=== PATIENT | female | born 1965 | race Caucasian/White ===

== ENCOUNTER 2017-02-02 23:12 | Emergency (ER) | payer BC ==
--- NOTE | ~2017-02-02 | CR72 ---
[facility] A Service of [facility] & [facility] RADIOLOGY TEXT RESULTS PATIENT: JAMES RIBERA LOCATION: [place] : [birth year] UNIT #: [id number] AGE: [address]: Sacha Gonsalez MD SEX: F ORDER DR: [id number] [facility] [address] [place], [place] [address] [id number] E MR#: [id number] Acc #: [id number] NAME: JAMES RIBERA : 1965 SEX: F STUDY DATE/TIME: 02/02/2017 22:42 UNIT: [place] ROOM: STUDY DESCRIPTION: CR Chest Single View Portable Attending Physician: Sacha Gonsalez M.D. Ordering Physician: Sacha Gonsalez M.D. Primary Care Physician: Melany Palumbo M.D. MEDICAL IMAGING REPORT This report is preliminary unless electronic signature is present EXAM Portable chest, 02/02/2017 INDICATION Chest pain for the past 3 days. PROCEDURE Frontal view chest. COMPARISON 10/29/2016 FINDINGS Stable mild cardiomegaly. Pulmonary vessels are unchanged. No dense consolidation, effusion or pneumothorax. IMPRESSION No change from 10/29/2016. Stable mild cardiomegaly. Dictated by... Robbin Hopkins M.D. THIS IS AN ELECTRONICALLY VERIFIED REPORT Robbin Hopkins M.D. at 02/03/2017 10:24 PM DALED/parveen TD: 02/03/2017 02:14 JOB #: [id number] MEDICAL IMAGING REPORT Page 1 of 1 COPY
--- NOTE | ~2017-02-02 | CT16 ---
[facility] A Service of [facility] RADIOLOGY TEXT RESULTS PATIENT: JAMES RIBERA LOCATION: [facility] : [birth year] UNIT #: [id number] AGE: [address]: Sacha Gonsalez MD SEX: F ORDER DR: [id number] [facility] [address] [place], [place] [address] [id number] E MR#: [id number] Acc #: [id number] NAME: JAMES RIBERA : 1965 SEX: F STUDY DATE/TIME: 02/03/2017 0:16 UNIT: [place] ROOM: STUDY DESCRIPTION: CT Angio Chest for PE Attending Physician: Sacha Gonsalez M.D. Ordering Physician: Sacha Gonsalez M.D. Primary Care Physician: Melany Palumbo M.D. MEDICAL IMAGING REPORT This report is preliminary unless electronic signature is present EXAM CTA chest, PE protocol INDICATIONS Elevated D-dimer level, off-and-on chest pain for the past 3 days. PROCEDURE Contrast-enhanced CTA chest, attention on opacification of pulmonary arteries. Coronal and 3-D MIP sagittal reformatted images were reconstructed and submitted. 80 mL of Isovue-370. This CT exam was performed with one or more of the following radiation dose reduction techniques: Automatic exposure control, adjustment of mA and/or kV according to patient size, and iterative reconstruction. COMPARISON 05/12/2016 FINDINGS No evidence for pulmonary embolus. No adenopathy. Cardiomegaly. No acute findings in the included upper abdomen. Lungs are clear. No aggressive appearing bone lesion. IMPRESSION 1. No acute findings. No evidence for pulmonary embolus. 2. Cardiomegaly. Dictated by... Robbin Hopkins M.D. THIS IS AN ELECTRONICALLY VERIFIED REPORT Robbin Hopkins M.D. at 02/03/2017 10:24 PM EED/psc [facility] A Service [facility] & [facility] RADIOLOGY TEXT RESULTS PATIENT: JAMES RIBERA LOCATION: [facility] : [birth year] UNIT #: [id number] AGE: [address]: Sacha Gonsalez MD SEX: F ORDER DR: TD: 02/03/2017 03:26 JOB #: [id number] MEDICAL IMAGING REPORT Page 1 of 1 COPY
--- NOTE | ~2017-02-02 | EKG ---
PATIENT: JAMES RIBERA UNIT #: [id number] Ventricular Rate: 71 BPM Atrial Rate: 71 BPM P-R Interval: 116 ms QRS Duration: 78 ms Q-T Interval: 382 ms QTC Calculation(Bezet): 415 ms P Adel: 37 degrees Calculated R Adel: 25 degrees Calculated T Adel: 29 degrees Diagnosis Line: Normal sinus rhythm Diagnosis Line: Normal ECG Diagnosis Line: When compared with ECG of 29-OCT-2016 21:31, Diagnosis Line: Premature ventricular complexes are no longer Diagnosis Line: Present Diagnosis Line: Confirmed by TANIYA CALLEJAS MD ([id number]) on 02/03/2017 Diagnosis Line: 10:29:28 PM INTERPRETING MD: JÚNIOR VAIL
[2017-02-02 22:49] LABS: BASOPHIL# 0.1 X10e3 (0-0.3); BASOPHIL% 0.9 % (0-2.5); DIFF IND NO; EOSINOPHIL# 0.1 X10e3 (0-0.7); EOSINOPHIL% 0.6 % (0.0-7.0); HEMATOCRIT 36.7 % (35.0-45.0); LYMPHOCYTE# 1.9 X10e3 (1.0-3.5); LYMPHOCYTE% 18.7 % (17.0-45.0); MEAN CELL VOLUME 83.3 FL (83-96); MEAN CORPUSCULAR HEMOGLOBIN 27.2 PG (28-34); MEAN CORPUSCULAR HGB CONC 32.7 g/dL (30-36); MEAN PLATELET VOLUME 7.7 FL (6.5-11.5); MONOCYTE# 0.7 X10e3 (0-1.0); MONOCYTE% 6.5 % (3.0-12.0); NEUTROPHIL# 7.6 X10e3 (1.5-7.1); NEUTROPHIL% 73.3 % (40-75); PLATELET COUNT 287 X10e3 (140-420); RED CELL DISTRIBUTION WIDTH 14.6 % (11.0-15.5); WHITE BLOOD COUNT 10.4 X10e3 (4.0-10.5)
[2017-02-02 22:52] LABS: POC - CKMB <1.0 ng/mL (0.0-7.9); POC - TROPONIN <0.05 ng/mL (<=0.05)
[2017-02-02 23:02] LABS: ALBUMIN SERUM 3.8 g/dL (3.5-5.0); ALKALINE PHOSPHATASE 93 U/L (32-92); ALT (SGPT) 16 U/L (10-40); AST (SGOT) 16 U/L (10-42); BILIRUBIN,TOTAL 0.3 mg/dL (0.2-2.0); BLOOD UREA NITROGEN 8 mg/dL (9-23); CALCIUM SERUM 8.5 mg/dL (8.4-10.2); CARBON DIOXIDE 21 mmol/L (22-31); CHLORIDE 108 mmol/L (100-111); CREATININE SERUM 0.5 mg/dL (0.6-1.4); GLOM FILT RATE Estimated 113.7 mL/min (>60); GLUCOSE FASTING 109 mg/dL (70-110); POTASSIUM 3.3 mmol/L (3.5-5.1); PROTEIN TOTAL SERUM 7.1 g/dL (6.0-8.3); SODIUM 137 mmol/L (135-145)
[2017-02-02 23:06] LABS: BILIRUBIN, DIRECT <0.1 mg/dL (0.0-0.2); BILIRUBIN,INDIRECT 0.2 mg/dL (0.0-0.9)
[2017-02-02 23:07] LABS: PARTIAL THROMBOPLASTIN TIME 21.2 SECONDS (23.5-31.3)
[~2017-02-02 23:12] MED LIST: ASPIRIN81 MG PO; BENTYL10 M1 PO; BIRTH CONTROL PILL PO; BRILINTA90 MG PO; CLARITIN10 M2 PO; CLARITIN10 MG PO; LEVAQUIN PO; LIPITOR PO; LIPITOR80 MG PO; LISINOPRIL10 MG PO; METOPROLOL TART25 MG PO; NITROGLYGERIN0.4 MG PO; PREVACID PO; PRILOSEC PO; ZOFRAN PO
[2017-02-03 01:06] LABS: POC - CKMB 1.5 ng/mL (0.0-7.9); POC - TROPONIN <0.05 ng/mL (<=0.05)
== END 2017-02-03 01:45 | disposition home or self-care (01) ==
LOC: CED 23:12
PROVIDERS: Emergency Medicine
DX: R07.89 Other chest pain (principal); I25.2 Old myocardial infarction; M79.7 Fibromyalgia; K21.9 Gastro-esophageal reflux disease without esophagitis; E78.5 Hyperlipidemia, unspecified; Z88.2 Allergy status to sulfonamides; Z88.1 Allergy status to other antibiotic agents; Z95.1 Presence of aortocoronary bypass graft
CPT/HCPCS: 36415; 71010; 71275; 80048; 80076; 82553; 84484; 85025; 85379; 85610; 85730; 93005; 99284; Q9967

== ENCOUNTER 2017-02-07 22:35 | Observation (INO) | payer BC ==
--- NOTE | ~2017-02-07 | ST ---
Unit #: [id number] #: [id number] Patient: JAMES RIBERA [id number] [address] [address] [id number] I MR#: [id number] NAME: JAMES RIBERA : 1965 SEX: F STUDY DATE/TIME: 02/08/2017 UNIT: [facility] ROOM: 578 STUDY DESCRIPTION: Stress Test Attending Physician: Rafael Tan M.D. Primary Care Physician: Melany Palumbo M.D. CARDIOLOGY REPORT REASON FOR TEST Chest pain, known coronary artery disease with stents. DESCRIPTION Baseline EKG - normal sinus rhythm, rate of 76 beats per minute. The patient exercised on the treadmill according to Abebe protocol for a total of 7 minutes 30 seconds achieving 9.30 METs with a resting heart rate of 76 beats per minute and a peak heart rate of 166 beats per minute representing 97% of the maximum predicted heart rate. During the testing, the patient did experience some mild chest discomfort at peak exertion under the left breast which she rated as approximately 3 to 4. The patient states it was fleeting and gone. No intervention was needed. She also had some shortness of breath. There were some mild ST segment changes noted in the inferior lateral leads of approximately 0.[address] segment depression in the inferior lateral leads. The patient did experience an occasional PVC during exercise as well as occasional PVCs in the recovery period. The test was stopped secondary to protocol completion achieving target heart rate. IMPRESSION 1. There were some EKG changes suggestive of ischemia, approximately 0.5 to 1 mm in the inferior lateral leads. The patient also did experience some mild chest pain during the testing. This was fleeting and resolved immediately. 2. During the infusion, the patient did experience some left sided chest pain, which was fleeting in nature and resolved immediately as well as shortness of breath and fatigue. 3. She did experience occasional PVCs during exercise as well as PVCs in the recovery period. 4. The patient did have a normal blood pressure response to exercise. 5. Please correlate with nuclear imaging. Dictated by... Michael Benítez M.D. Unit #: [id number] #: [id number] Patient: JAMES RIBERA KATHERIN/fanny TD: 02/08/2017 13:08 JOB #: [id number] CARDIOLOGY REPORT Page 1 of 1 X Jen Troncoso APRN CARDIOLOGY REPORT
--- NOTE | ~2017-02-07 | EKG ---
PATIENT: JAMES RIBERA UNIT #: [id number] Ventricular Rate: 86 BPM Atrial Rate: 86 BPM P-R Interval: 106 ms QRS Duration: 76 ms Q-T Interval: 366 ms QTC Calculation(Bezet): 437 ms P Salem: 57 degrees Calculated R Salem: 55 degrees Calculated T Salem: 50 degrees Diagnosis Line: Sinus rhythm with marked sinus arrhythmia with Diagnosis Line: short CA Diagnosis Line: Otherwise normal ECG Diagnosis Line: No previous ECGs available Diagnosis Line: Confirmed by TANIYA CALLEJAS MD ([id number]) on 02/08/2017 Diagnosis Line: 10:45:33 PM INTERPRETING MD: JÚNIOR VAIL
--- NOTE | ~2017-02-07 | DS ---
Unit #: [id number] #: [id number] Patient: JAMES RIBERA Jen Troncoso APRN X DISCHARGE SUMMARY
--- NOTE | ~2017-02-07 | HP ---
Unit #: [id number] #: [id number] Patient: JAMES RIBERA [id number] [address] [place], [place] [address] [id number] I MR#: [id number] NAME: JAMES RIBERA ROOM: 46452 Age: 51 Sex: F Admission Date: 02/08/2017 : 1965 Attending Physician: Rafael Tan M.D. Primary Care Physician: Melany Palumbo M.D. HISTORY AND PHYSICAL HISTORY OF PRESENT ILLNESS This is a 51-year-old white female with known history of hypertension, hyperlipidemia, had non-ST elevation DE last May, status post PCI and stents to the mid and proximal LAD, who just seen Dr. Tan in the office last week and he adjusted her medication because she had some lower extremity edema. She was added on hydrochlorothiazide. According to the patient, she had a couple episodes of midsternal chest pain that radiated under the left breast. She did have some slight shortness of breath but denies any diaphoresis. [place] some palpitation and she says her blood pressure is up. The patient checked her blood pressure and it was over 150 systolically. Today, she was at work and she had another episode of the midsternal chest discomfort. This time, it went into the upper chest wall. She sat down for a few minutes. She took a sublingual nitroglycerin. She said it resolved. She was on her job as a welcome wagon hostess at a restaurant and she said the chest pain reoccurred. This time it radiated up to the left arm besides the left upper chest wall. She describes it as an aching pressure. She rates it on a pain skill of 1 to 10 to be about a 7. She says the sublingual nitroglycerin did help some but she is concerned it could be her heart so she came in for further evaluation. She has had no recent cough, fever or chills. Denies any dizziness, presyncope or syncope. No paroxysmal nocturnal dyspnea or orthopnea. PAST MEDICAL HISTORY 1. Hypertension. 2. Hyperlipidemia. 3. Gastroesophageal reflux disease. 4. Fibromyalgia. 5. History of thoracic outlet syndrome. 6. Coronary artery disease 05/20/16. Acute non-ST elevated DE. Status post PCI and stents to the mid and the proximal LAD. The coronaries were normal. 7. 05/20/16 2D echo. LVEF of 60% with mild mitral regurgitation and trivial tricuspid regurgitation. 8. Smoker. PAST SURGICAL HISTORY 1. Status post PCI and two drug-eluting stents to the mid and proximal LAD. 2. [place] teeth extraction. HOME MEDICATIONS 1. Lisinopril 10 mg p.o. daily. 2. Prilosec 20 mg p.o. daily. Unit #: [id number] #: [id number] Patient: JAMES RIBERA 3. Bentyl 10 mg p.o. daily. 4. Claritin 10 mg p.o. daily. 5. Lipitor 80 mg p.o. at bedtime. 6. Aspirin 81 mg p.o. daily. 7. Brilinta 90 mg p.o. twice daily. 8. Nitrostat 0.4 mg sublingual every five minutes x3 p.r.n. 9. ProAir two puffs inhalation twice daily p.r.n. 10. Metoprolol 50 mg p.o. twice daily. 11. Hydrochlorothiazide 25 mg p.o. daily. 12. Montelukast 10 mg p.o. daily. 13. Blisovi-FE 11/20 tab, one tablet p.o. daily. ALLERGIES Sulfonamides, doxycycline. SOCIAL HISTORY The patient lives with her . 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 She doesn't do any exertional exercise except she says she walks frequently at work. She has been a lifelong nonsmoker. No alcohol or illicit drug abuse. FAMILY HISTORY Her father had coronary artery bypass graft at the age of 58. REVIEW OF SYSTEMS CONSTITUTIONAL: Denies fever or chills. No recent weight gain or weight loss. HEENT: Denies headache or dizziness. No visual or hearing changes. No lymphadenopathy or thyromegaly. No difficulty swallowing. CARDIOVASCULAR: Chest pain present. Palpitations present. Denies increased lower extremity edema. PULMONARY: Slightly increased shortness of breath with the chest pain. Denies paroxysmal nocturnal dyspnea or orthopnea. GI: Denies nausea, vomiting, diarrhea, abdominal pain. NEUROLOGICAL: No focal weakness. PHYSICAL EXAMINATION GENERAL: On exam, the patient is a 51-year-old white female in no acute respiratory distress. She is awake, alert and oriented. VITAL SIGNS: Blood pressure currently is 111/73, blood pressure was as high as 154/91 after admission. Heart rate 92, respirations 20, temperature is 99.1. NECK: Trachea midline. No thyromegaly or lymphadenopathy. Normal carotid upstrokes. No jugular venous distention. HEART: S1, S2. Regular rate and rhythm. No clicks, murmurs or rubs. LUNGS: Bilaterally clear throughout. No wheezes, rales or rhonchi. ABDOMEN: Soft and nontender. Positive bowel sounds present. No hepatosplenomegaly. EXTREMITIES: Pedal pulses are palpable. No pedal edema. DIAGNOSTIC STUDIES LABORATORY: Glucose is 110, BUN 13, creatinine 0.9, eGFR 75.1, sodium 138, potassium 3.4, chloride 104, CO2 24, calcium 9.1, total protein 7.5, albumin is 4.1, AST 17, ALT 17, alkaline phos. is 99. WBC 15.0, hemoglobin 13.2, hematocrit 41.5 and platelets 341. Initial cardiac enzymes - CK MB less than 1.0, troponin is less than 0.05. Unit #: [id number] #: [id number] Patient: JAMES RIBERA CK MB is less than 1.0, troponin less than 0.05. IMAGING: Chest x-ray shows mild cardiomegaly, otherwise no active disease. CARDIOVASCULAR: EKG shows normal sinus rhythm with ventricular rate of 86 beats per minute, nonspecific ST-T wave abnormalities in the lateral leads. Poor R wave progression. Mild left atrial abnormality. IMPRESSION 1. Chest pain. 2. History of coronary artery disease, previous percutaneous coronary intervention and stent x2 to the mid and proximal left anterior descending in 05/2016. 3. Left ventricular ejection fraction of 60%. Mild mitral regurgitation. 4. Hypertension. 5. Hyperlipidemia. 6. Gastroesophageal reflux disease. 7. Fibromyalgia. 8. History of thoracic outlet syndrome. PLAN 1. Will repeat cardiac enzymes this morning. Her EKG looks unremarkable. If her cardiac enzymes remain negative, Dr. Tan recommends proceeding with an exercise Cardiolite stress test to further evaluate for ischemia heart disease. 2. The patient's potassium is 3.4. Will supplement her potassium this morning before the stress test. 3. Continue patient on her dual antiplatelet therapy which is Brilinta and aspirin in addition to Nitrostat. She is on a beta romeo and FABIOLA inhibitor. 4. On exam, there are no signs or symptoms of acute congestive heart failure. 5. Obtain a fasting lipid profile and evaluate. 6. Further recommendations pending per Dr. Tan. Dictated by Pippa Mays A.P.R.N. for Jayme Sloan/fanny TD: 02/08/2017 08:30 JOB #: [id number] HISTORY AND PHYSICAL Page 1 of 1 X Pippa Mays APRN HISTORY AND PHYSICAL
--- NOTE | ~2017-02-07 | TH ---
Unit #: [id number] #: [id number] Patient: JAMES RIBERA [id number] [address] [address] [id number] I MR#: [id number] NAME: JAMES RIBERA : 1965 SEX: F STUDY DATE/TIME: 02/08/2017 UNIT: [facility] ROOM: 578 STUDY DESCRIPTION: Attending Physician: Rafael Tan M.D. Primary Care Physician: Melany Palumbo M.D. CARDIOLOGY REPORT EXAM Exercise Cardiolite stress test, nuclear portion. PROCEDURE Using technetium 99m labeled Cardiolite, rest and stress SPECT images were obtained. Multiple SPECT images were obtained in various views including horizontal and vertical long axis and short axis views of the left ventricle. Images were obtained by gated SPECT method. The patient was administered 10.65 mCi of Cardiolite at rest. The patient was administered 30.5 mCi of Cardiolite at peak exercise. Total exercise time is 6 minutes and 20 seconds. On the stress images, there is normal perfusion noted. The rest images show normal perfusion. Comparing rest and stress images, there is no stress-induced ischemia noted. The left ventricular ejection fraction is calculated to be 74%. There is no focal wall motion abnormality seen. CONCLUSION 1. No stress-induced ischemia noted. 2. The left ventricular ejection fraction is calculated to be 74%. 3. There is no focal wall motion abnormality seen. 4. Normal nuclear portion of the stress test. 5. The patient complained of some chest discomfort during exercise with nonspecific ST-T wave changes in the inferolateral leads. Clinical correlation is requested. Dictated by... Jayme Doyle TD: 02/08/2017 16:51 JOB #: [id number] Unit #: [id number] #: [id number] Patient: JAMES RIBERA CARDIOLOGY REPORT Page 1 of 1 X Jasmyne Singletary MD <ELECTRONICALLY SIGNED> 05/22/17 1429 CARDIOLOGY REPORT
--- NOTE | ~2017-02-07 | CR72 ---
[facility] A Service of [facility] RADIOLOGY TEXT RESULTS PATIENT: JAMES RIBERA LOCATION: [facility] 578-01 : [birth year] UNIT #: [id number] AGE: [address]: Rafael Tan MD SEX: F ORDER DR: [id number] [facility] [address] [place], [place] [address] [id number] I MR#: [id number] Acc #: [id number] NAME: JAMES RIBERA : 1965 SEX: F STUDY DATE/TIME: 02/07/2017 23:11 UNIT: [facility] ROOM: [address]91 STUDY DESCRIPTION: CR Chest Single View Portable Attending Physician: Rafael Tan M.D. Ordering Physician: Dewayne Pan M.D. Primary Care Physician: Melany Palumbo M.D. MEDICAL IMAGING REPORT This report is preliminary unless electronic signature is present EXAM Portable chest 02/07/2017 at 23:11 INDICATION Chest pain, fever that started yesterday. COMPARISON 02/02/2017. FINDINGS AP portable chest was obtained. There is stable mild cardiomegaly. Lungs are clear. No pneumothorax. IMPRESSION Stable mild cardiomegaly. No active disease. Dictated by... Raudel Sanchez Jr., M.D. THIS IS AN ELECTRONICALLY VERIFIED REPORT Raudel Sanchez Jr., M.D. at 02/08/2017 11:14 AM JEANINE/yousuf TD: 02/08/2017 07:22 JOB #: [id number] MEDICAL IMAGING REPORT Page 1 of 1 COPY
[2017-02-07 23:45] LABS: BASOPHIL# 0.1 X10e3 (0-0.3); BASOPHIL% 0.4 % (0-2.5); EOSINOPHIL# 0.1 X10e3 (0-0.7); EOSINOPHIL% 0.4 % (0.0-7.0); HEMATOCRIT 41.5 % (35.0-45.0); HEMOGLOBIN 13.2 gm/dL (12.0-16.0); LYMPHOCYTE# 2.6 X10e3 (1.0-3.5); LYMPHOCYTE% 17.2 % (17.0-45.0); MEAN CELL VOLUME 84.3 FL (83-96); MEAN CORPUSCULAR HEMOGLOBIN 26.8 PG (28-34); MEAN CORPUSCULAR HGB CONC 31.9 g/dL (30-36); MEAN PLATELET VOLUME 7.8 FL (6.5-11.5); MONOCYTE# 0.8 X10e3 (0-1.0); NEUTROPHIL# 11.5 X10e3 (1.5-7.1); PLATELET COUNT 341 X10e3 (140-420); RED BLOOD COUNT 4.92 X10e (3.90-5.30); RED CELL DISTRIBUTION WIDTH 15.2 % (11.0-15.5)
[2017-02-07 23:46] LABS: DIFF IND NO
[2017-02-08 00:01] LABS: PROTHROMBIN TIME (PATIENT) 10.2 SECONDS (9.6-11.5)
[2017-02-08 00:07] LABS: ALBUMIN SERUM 4.1 g/dL (3.5-5.0); BILIRUBIN,TOTAL 0.7 mg/dL (0.2-2.0); BUN/CREATININE RATIO 14.44; CALCIUM SERUM 9.1 mg/dL (8.4-10.2); CREATININE SERUM 0.9 mg/dL (0.6-1.4); GLOM FILT RATE Estimated 75.1 mL/min (>60); POTASSIUM 3.4 mmol/L (3.5-5.1); PROTEIN TOTAL SERUM 7.5 g/dL (6.0-8.3)
[2017-02-08 00:16] LABS: BILIRUBIN, DIRECT 0.1 mg/dL (0.0-0.2); BILIRUBIN,INDIRECT 0.6 mg/dL (0.0-0.9)
[2017-02-08 00:22] LABS: POC - CKMB <1.0 ng/mL (0.0-7.9); POC - TROPONIN <0.05 ng/mL (<=0.05)
[2017-02-08] MEDS ORDERED: PROAIR HFA8.5 GM INH (00:40)
[2017-02-08] MEDS ORDERED: METOPROLOL TAR25 MG PO (00:41)
[2017-02-08] MEDS ORDERED: MONTELUKAST SOD10 MG PO (00:44)
[2017-02-08] MEDS ORDERED: HYDROCHLOROTHIA25 MG PO (00:44)
[2017-02-08] MEDS ORDERED: BLISOVI FE 1-21 EACH PO (00:45)
[2017-02-08 02:05] LABS: POC - CKMB <1.0 ng/mL (0.0-7.9); POC - TROPONIN <0.05 ng/mL (<=0.05)
[2017-02-08 09:11] LABS: CK TOTAL 50 IU/L (26-140)
[2017-02-08 09:40] LABS: CHOLESTEROL 123 mg/dL (0-200); HDL CHOLESTEROL 31 mg/dL (35-95); LDL CHOLESTEROL 72 mg/dL (-130); LDL/HDL RATIO 2 RATIO (0-4); TRIGLYCERIDES 98 mg/dL (10-160)
[2017-02-08] MEDS ORDERED: CLOPIDOGREL75 MG PO (16:25)
[2017-02-08] MEDS ORDERED: IMDUR-ER30 M2 PO (16:26)
== END 2017-02-08 20:18 | disposition home or self-care (01) | DRG 313 ==
LOC: CED 22:35 → CEDOF 02-08 00:32 → C5C 02-08 09:52
PROVIDERS: Emergency Medicine; Internal Medicine Cardiovascular Disease
DX: R07.89 Other chest pain (principal); I25.10 Atherosclerotic heart disease of native coronary artery without angina pectoris; Z95.5 Presence of coronary angioplasty implant and graft; I34.0 Nonrheumatic mitral (valve) insufficiency; I10 Essential (primary) hypertension; E78.5 Hyperlipidemia, unspecified; K21.9 Gastro-esophageal reflux disease without esophagitis; M79.7 Fibromyalgia; Z86.79 Personal history of other diseases of the circulatory system; Z82.49 Family history of ischemic heart disease and other diseases of the circulatory system; Z79.02 Long term (current) use of antithrombotics/antiplatelets; Z79.82 Long term (current) use of aspirin
CPT/HCPCS: 36415; 71010; 78452; 80048; 80061; 80076; 82550; 82553; 84484; 85025; 85610; 85730; 93005; 93017; 99285; A9500; G0378